=== PATIENT | female | born 1995 | race Caucasian/White ===

== ENCOUNTER 2021-06-13 08:25 | Outpatient (CLI) | payer OTHER, SELFPAY ==
--- NOTE | ~2021-06-13 | XR_ITS ---
EXAMINATION: XR wrist RT min 3V DATE: 06/13/2021 09:10 INDICATION: Right wrist pain TECHNIQUE: Posteroanterior, ulnar deviation, oblique, and lateral views of the right wrist were obtai jesus. COMPARISON: none FINDINGS: Alignment is normal. No fracture. Joint spaces are normal. No erosions. Soft tissues are unremarkable . IMPRESSION: 1. Negative right wrist radiographs. Reviewed, dictated and finalized at location B. LOFT WORKER
== END 2021-06-13 08:26 ==
PROVIDERS: PCP Nurse Practitioner Family; Visit Provider Nurse Practitioner Family
DX: M25.531 Pain in right wrist (principal)
CPT/HCPCS: 73110

== ENCOUNTER 2023-10-05 14:17 | Observation (INO) | payer SELFPAY ==
--- NOTE | ~2023-10-05 | CT_ITS ---
EXAMINATION: CT abdomen pelvis w con DATE: 10/05/2023 17:24 INDICATION: abdominal pain TECHNIQUE: Computed tomography (CT) of the abdomen and pelvis was performed with 100 mL Omnipaque-350 intravenous contrast. Automated exposure control and iterative reconstruction technique were employe d. The dose-length product was 244.08 mGy-cm. COMPARISON: None. FINDINGS: Lower thorax: Unremarkable Liver: Normal. Biliary/Gallbladder: Gallbladder is normal. No bile duct dilation. Pancreas: No mass or duct dilation. Spleen: Normal. Adrenals:No mass. Kidneys: Mild right caliectasis and moderate right pelviectasis. No obstructing calcification or mass . Normal left kidney. GI tract: Mild distal esophageal and gastric wall edema. No small or large bowel dilation. Dilated, a ppendix measuring up to 9 mm. Mesentery/Peritoneum: No ascites, mass, or free air. Retroperitoneum: No mass. Pelvis: Normal uterus and left ovary. 4.4 cm simple appearing right ovarian cyst. Midline, posterior location of the right ovary, without definite twisting of the vascular pedicle. Soft Tissues: Soft tissues and body wall unremarkable. Bones: No acute osseous finding. IMPRESSION: Mild esophagitis/gastritis. Mild right caliectasis and moderate pelviectasis, possibly representing chronic UPJ obstruction. Dilated 9 mm appendix, likely representing acute uncomplicated appendicitis. 4.4 cm simple appearing left ovarian cyst. No definite left ovarian vascular pedicle twist to suggest torsion, however, if there are symptoms in the deep pelvis or symptoms that might suggest ovarian to rsion, consider pelvic ultrasound for further evaluation. Reviewed, dictated and finalized at location K. IMPRESSION: Mild esophagitis/gastritis. Mild right caliectasis and moderate pelviectasis, possibly representing chronic UPJ obstruction. Dilated 9 mm appendix, likely representing acute uncomplicated appendicitis. 4.4 cm simple appearing left ovarian cyst. No definite left ovarian vascular pe dicle twist to suggest torsion, however, if there are symptoms in the deep pelv is or symptoms that might suggest ovarian torsion, consider pelvic ultrasound f or further evaluation.
[2023-10-05 14:44] VITALS: BP 130/79; PULSE 100; RESP 16; TEMP 37; O2SAT 100
[2023-10-05 15:07] LABS: Appearance Urine Cloudy (Clear); Bacteria Urine Rare /hpf; Bilirubin Urine Negative (Negative); Blood Urine 2+ (Negative); Color Urine Yellow (Yellow); Glucose Urine UA Negative (Negative); Ketones Urine Negative (Negative); Leukocyte Esterase Ur 3+ LEU/UL (Negative); Need Manual Microscopic Reviewed; Nitrate Urine Negative (Negative); Non Pathogenic Casts 0-2; Protein Urine Negative (Negative); RBC Urine 0-2 /hpf (0-2); Specific Grav Ur 1.008 (1.001-1.035); Squamous Epithelial Cell Urine Few /hpf (Few); Urobilinogen Urine 0.2 mg/dL (<2.0); WBC Urine 51-100 /hpf (0-3); pH Urine 5.5 (5.0-9.0)
[2023-10-05 15:09] LABS: Add Urine Microscopic? YES
--- NOTE | 2023-10-05 15:30 | ED.GENADULT ---
HPI - General Adult General Chief complaint: Abdominal Pain <Kim Smith STONE CARRIAGE OPERATOR - Last Filed: 10/05/23 15:31> Stated complaint: R SIDED ABD PAIN <Kim Valdez October, STONE CARRIAGE OPERATOR - Last Filed: 10/05/23 15:31> Time Seen by Provider: 10/05/23 15:30 <Kim Valdez October, STONE CARRIAGE OPERATOR - Last Filed: 10/05/23 15:31> Focused HPI: Brea Frye is a 28 y/o female who presents with reports of right lower abdominal pain that started at about 1800 last night, reports pain is at a 4/ 10. Reports nausea last night but has not vomited. Last ate at 0900 and last drank water at 1300. denies changes with urine, last BM was last night. GENERAL: Well-appearing, well-nourished, and in no acute distress. HEAD: Normocephalic, atraumatic. CHEST: Clear to auscultation. ?No respiratory distress. HEART: Regular rate and rhythm.? NEURO: ?Alert and oriented x3. Patient screened in triage and initial orders placed.? ?Additional care and disposition to be based upon?diagnostic testing and treatment. 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 Patient states the pain is intermittently between her umbilicus and her right lower quadrant. She states last night she had some nausea and loss of appetite but states that has since resolved. She denies fevers, vomiting, prior abdominal surgeries, dysuria or hematuria. Last bowel movement was last night and normal. She is currently on her menstrual cycle. States she has been eating well today. <Evie Pruitt PA-C - Last Filed: 10/05/23 20:36> Related Data Home medications: Home Medications Medication Instructions Recorded Confirmed No Home Medications 10/05/23 10/05/23 <Kim Valdez October, STONE CARRIAGE OPERATOR - Last Filed: 10/05/23 15:31> Allergies/adverse reactions: Allergies Allergy/AdvReac Type Severity Reaction Status Date / Time Pistachio Allergy Unknown Unknown Uncoded 11/11/17 10:46 <Kim Smith, STONE CARRIAGE OPERATOR - Last Filed: 10/05/23 15:31> Review of Systems Review of Systems: CONSTITUTIONAL: Denies fever, chills, or sweats. EYES: Denies visual changes, redness, or discharge. ENT: Denies rhinorrhea, congestion, sore throat, or otalgia. CARDIOVASCULAR: Denies chest pain, palpitations, or edema. RESPIRATORY: Denies cough or dyspnea. GASTROINTESTINAL: See HPI GENITOURINARY: Denies dysuria or hematuria. SKIN: Denies rash or itching. MUSCULOSKELETAL: Denies back pain, joint pain, or myalgia. NEUROLOGIC: Denies headache, numbness, or weakness. PSYCHIATRIC: Denies anxiety or depression. <Evie Pruitt PA-C - Last Filed: 10/05/23 20:36> [facility] Social History Social History: Social History Smoking status: Never smoker Alcohol intake: never Substance use: never Do You Feel Safe in your Home?: Yes Lack of Transportation: YES Lack of Food: Never True Current Housing: I Have Housing Concerned About Future Housing: No Difficulty Paying Gas/Electric Bills: No Difficulty Paying for Meds: No Currently Unemployed: No Education: High School Diploma/GED Difficulty w/ Childcare or Family Care: No Spiritual care concerns: No <Kim Smith, STONE CARRIAGE OPERATOR - Last Filed: 10/05/23 15:31> Exam Narrative: GENERAL: Well-appearing, well-nourished, and in no acute distress. HEAD: Normocephalic, atraumatic. EYES: PERRLA and EOMI. ENT: Nares clear, no rhinorrhea or epistaxis. Mucous membranes moist. NECK: Supple. CHEST: Clear to auscultation. No respiratory distress. HEART: Regular rate and rhythm. No murmur heard. Normal peripheral pulses. ABDOMEN: Normoactive bowel sounds. Abdomen soft with tenderness in the right lower quadrant. No rebound, guarding or rigidity. Positive Rovsing s
[2023-10-05] MEDS: KETOROLAC 30 MG/ML VIAL (*BKC) IV PUSH (16:41)
[2023-10-05 16:45] VITALS: BP 128/85; PULSE 89; RESP 18; O2SAT 100
[2023-10-05 16:54] LABS: Basophils Percent Auto 0.3 % (0.2-1.2); Eosinophils Percent Auto 0.4 % (0-4.4); Hematocrit 43.1 % (37.0-47.0); Hemoglobin 14.7 g/dL (12.0-15.0); Immature Granulocyte Absolute 0.02 K/mm3 (0.00-0.031); Immature Granulocyte Percent A 0.3 % (0-0.5); Lymphocytes Absolute Auto 2.06 K/mm3 (0.9-3.2); Lymphocytes Percent Auto 26.1 % (18.3-44.2); Mean Corpuscular HGB Conc 34.1 g/dl (32-36); Mean Corpuscular Hemoglobin 30.2 pg (26-34); Mean Corpuscular Volume 88.5 fl (80-100); Mean Platelet Volume 11.1 fl (7.4-10.4); Monocytes Absolute Auto 0.5 K/mm3 (0.1-0.6); Monocytes Percent Auto 5.7 % (2.6-8.5); Neutrophils Absolute Auto 5.3 K/mm3 (1.3-6.7); Neutrophils Percent Auto 67.2 % (45.5-73.1); Platelet Count Result 181 k/mm3 (150-375); Red Blood Count 4.87 M/mm3 (4.2-5.4); Red Cell Distribution Width 12.6 % (11.5-14.5); White Blood Count 7.9 K/mm3 (4.5-10.0)
[2023-10-05 17:03] LABS: Alanine Aminotransferase 14 U/L (6-35); Albumin Level 5.2 g/dL (3.5-5.1); Alkaline Phosphatase 72 U/L (38-126); Anion Gap 9 mmol/L (4-12); Aspartate Amino Transferase 21 U/L (14-36); Bilirubin,Total 0.8 mg/dL (0.2-1.3); Blood Urea Nitrogen 8 mg/dL (7-17); Calcium 9.8 mg/dL (8.4-10.2); Carbon Dioxide 29 mmol/L (22-30); Chloride 100 mmol/L (98-107); Estimated CRCL calculation 94 ml/min; Estimated Glomerular Filt Rate > 60; Glucose 96 mg/dL (65-110); Sodium 138 mmol/L (137-145)
[2023-10-05 20:14] LABS: Lactic Acid Reflex 0.8 mmol/L (0.7-2.0)
[2023-10-05 20:18] LABS: INR 1.1; Partial Thromboplastin Time 33.8 Seconds (22.3-36.8); Prothrombin Time 14.4 Seconds (11.1-14.7)
[2023-10-05] MEDS: PIPERACILLN/TAZ 3.375GM/NS50ML 3.375 GM/50 ML BAG IVPB ×2 (20:19→23:07)
[2023-10-05 20:31] VITALS: BP 116/77; PULSE 68; RESP 18; O2SAT 98
[2023-10-05] MEDS: SODIUM CHLORIDE 0.9% IV 1,000 ML 100 ML IV CONT (20:58)
[2023-10-05 21:13] VITALS: BP 114/83; PULSE 67; RESP 17; O2SAT 100
--- NOTE | 2023-10-05 21:34 | ADMGEN ---
This patient, Brea Frye, was admitted to [facility] Room [facility]02. Patient/family oriented to hospital policies and general routines including ID bracelet, bed and alarms, visiting hours, pain management, procedures, bathroom and other care routines, personal items, smoking policy, room service/diet, and visiting hours. Information on how to activate the Rapid Response Team has been discussed. Patient/Family are encouraged to report perceived risks to care and to ask questions if they do not understand what they are told or what they should do.
[2023-10-05 22:00] VITALS: BP 125/76; PULSE 89; RESP 16; TEMP 36.9; O2SAT 99
[2023-10-06] VITALS (13 sets, daily range): BP systolic 104–122; BP diastolic 53–84; PULSE 74–100; RESP 12–18; TEMP 35.6–37; O2SAT 95–100
[2023-10-06] MEDS: PIPERACILLN/TAZ 3.375GM/NS50ML 3.375 GM/50 ML BAG IVPB ×2 (05:40→11:01)
--- NOTE | 2023-10-06 07:24 | WPDHPUPDATE1 ---
History and Physical Update Update Date/Time: 10/06/23 07:24 History and Physical has been reviewed, including an updated exam of the patient. There are NO changes in the patient's condition. Risks, benefits, and alternatives have been discussed and questions answered. Patient agrees to proceed with procedure.
--- NOTE | 2023-10-06 07:24 | PM.IMHP ---
H&P: HPI History of Present Illness Date/Time: 10/06/23 07:24 Chief Complaint: Right lower quadrant pain Narrative: This is a 28-year-old woman who presented to the emergency department last night with right lower quadrant pain that started yesterday. Her pain was located mostly in the right lower quadrant but also around the umbilicus. She denies any fevers or chills. She did have some nausea but no vomiting. She has never had symptoms like this in the past. Review of Systems Review of Systems: All systems reviewed & are unremarkable except as noted in HPI and below Eyes: Eyes: Denies change in vision ENT: Denies hearing loss, Denies neck pain and Denies sore throat Cardiovascular: Cardiovascular: Denies chest pain and Denies dyspnea Respiratory: Respiratory: Denies cough, Denies dyspnea and Denies wheezing Genitourinary: Genitourinary: Denies hematuria and Denies dysuria Musculoskeletal: Musculoskeletal: Denies arthralgias, Denies joint swelling and Denies neck pain Allergic/Immunologic: Allergic/Immunologic: Denies wheezing [facility] Past Medical History Medical History (Updated 10/06/23 @ 07:29 by Lokesh Gagnon DO) Hemophilia B carrier Surgical History Surgical History (Updated 10/06/23 @ 07:29 by Lokesh Gagnon DO) History of surgery on wrist Family History Family History Mother No problems noted. Father No problems noted. Social History Social History Smoking status: Never smoker Alcohol intake: never Substance use: never Do You Feel Safe in your Home?: Yes Lack of Transportation: YES Lack of Food: Never True Current Housing: I Have Housing Concerned About Future Housing: No Difficulty Paying Gas/Electric Bills: No Difficulty Paying for Meds: No Currently Unemployed: No Education: High School Diploma/GED Difficulty w/ Childcare or Family Care: No Spiritual care concerns: No Meds Home Medications and Allergies Home Medications Medication Instructions Recorded Confirmed Type No Home Medications 10/05/23 10/05/23 History Allergies Allergy/AdvReac Type Severity Reaction Status Date / Time Pistachio Allergy Unknown Unknown Uncoded 04/17/17 10:46 Vital Signs Vital Signs - 24 hr 10/05/23 14:44 10/05/23 16:45 10/05/23 21:13 Temperature 37.0 C Pulse Rate 100 89 67 Respiratory Rate 16 18 17 Blood Pressure 130/79 128/85 114/83 Pulse Oximetry 100 100 100 Oxygen Delivery 10/05/23 20:31 10/05/23 22:00 10/05/23 22:40 Temperature 36.9 C Pulse Rate 68 89 Respiratory Rate 18 16 Blood Pressure 116/77 125/76 Pulse Oximetry 98 99 Oxygen Delivery Room Air 10/06/23 06:00 Temperature 36.4 C Pulse Rate 74 Respiratory Rate 16 Blood Pressure 109/61 Pulse Oximetry 100 Oxygen Delivery Exam Const: General: alert; No acute distress Orientation/consciousness: patient oriented x3 Limitations: no limitations HENMT: Head: normocephalic and atraumatic Ears: hearing grossly normal bilaterally Face/Nose/Sinus: Normal external nose present and Normal nares present Mouth: Yes Normal oral and palatal mucosa present and Yes moist mucous membranes Eyes: General: appearance normal, both eyes and all related structures Conjunctivae: conjunctivae normal Sclera: sclerae normal Pupils: Equal, round and reactive pupils present EOM: EOMs intact bilaterally Neck: Neck: normal visual inspection, full ROM, no lymphadenopathy, supple and no JVD Lymphatic: no lymphadenopathy noted Chest: Chest palpation & inspection: normal inspection of the chest Resp: Effort & Inspection: normal respiratory effort and able to speak in complete sentences Auscultation: clear to auscultation bilaterally Percussion: percussion normal Cardio: Jugular venous distension: no JVD Rate: regular rate Rhythm: regular rhythm Heart
--- NOTE | 2023-10-06 07:44 | WPDANESEPPF ---
Anes - Initial Pre Proc Eval Procedure: Operation Date: 10/06/23 07:30 Proposed Procedures p Laparoscopic Appendectomy, Possible Open - Lokesh Gagnon DO Date/Time: 10/06/23 07:44 Surgeon: Lokesh Gagnon DO Pre Op Diagnosis: Acute Appendicitis Patient Data Age: 28 Gender: F Height: 1.65 m Weight: 61 kg Last Vital Signs Temp 36.4 C 10/06/23 06:00 Pulse 74 10/06/23 06:00 Resp 16 10/06/23 06:00 BP 109/61 10/06/23 06:00 Pulse Ox 100 10/06/23 06:00 O2 Del Method Room Air 10/05/23 22:40 Allergies Allergy/AdvReac Type Severity Reaction Status Date / Time Pistachio Allergy Unknown Unknown Uncoded 04/17/17 10:46 Home Medications Medication Instructions Recorded Confirmed Type No Home Medications 10/05/23 10/05/23 History Laboratory Tests 10/05/23 10/05/23 10/05/23 14:41 16:41 19:55 WBC 7.9 K/mm3 (4.5-10.0) RBC 4.87 M/mm3 (4.2-5.4) Hgb 14.7 g/dL (12.0-15.0) Hct 43.1 % (37.0-47.0) MCV 88.5 fl (80-100) MCH 30.2 pg (26-34) MCHC 34.1 g/dl (32-36) RDW 12.6 % (11.5-14.5) Plt Count 181 k/mm3 (150-375) MPV 11.1 H fl (7.4-10.4) Immature Gran % (Auto) 0.3 % (0-0.5) Neut % (Auto) 67.2 % (45.5-73.1) Lymph % (Auto) 26.1 % (18.3-44.2) [place] % (Auto) 5.7 % (2.6-8.5) Eos % (Auto) 0.4 % (0-4.4) Baso % (Auto) 0.3 % (0.2-1.2) Lymph # (Auto) 2.06 K/mm3 (0.9-3.2) [place] # (Auto) 0.5 K/mm3 (0.1-0.6) Eos # (Auto) 0.0 K/mm3 (0-0.3) Baso # (Auto) 0.0 K/mm3 (0.0-0.1) Abs Immat Gran (auto) 0.02 K/mm3 (0.00-0.031) Absolute Neuts (auto) 5.3 K/mm3 (1.3-6.7) Absolute Nucleated RBC 0.000 K/mm3 (0.0-0.012) Nucleated RBC % 0.0 % (0.0-0.2) PT 14.4 Seconds (11.1-14.7) INR 1.1 APTT 33.8 Seconds (22.3-36.8) Sodium 138 mmol/L (137-145) Potassium 4.0 mmol/L (3.4-5.0) Chloride 100 mmol/L (98-107) Carbon Dioxide 29 mmol/L (22-30) Anion Gap 9 mmol/L (4-12) BUN 8 mg/dL (7-17) Creatinine 0.70 mg/dL (0.7-1.0) Estim Creat Clear Calc 94 ml/min Estimated GFR > 60 (59 - ) Glucose 96 mg/dL (65-110) Lactic Acid 0.8 mmol/L (0.7-2.0) Calcium 9.8 mg/dL (8.4-10.2) Total Bilirubin 0.8 mg/dL (0.2-1.3) AST 21 U/L (14-36) ALT 14 U/L (6-35) Alkaline Phosphatase 72 U/L (38-126) Total Protein 9.0 H g/dL (6.3-8.2) Albumin 5.2 H g/dL (3.5-5.1) Urine Color Yellow (Yellow) Urine Appearance Cloudy H (Clear) Urine pH 5.5 (5.0-9.0) Ur Specific [place] 1.008 (1.001-1.035) Urine Protein Negative mg/dL (Negative) Urine Glucose (UA) Negative mg/dL (Negative) Urine Ketones Negative mg/dL (Negative) Ur Blood (Man) 2+ H (Negative) Urine Nitrate Negative (Negative) Urine Bilirubin Negative (Negative) Urine Urobilinogen 0.2 mg/dL (<2.0) Add Ur Microanalysis Reviewed Leukocyte Esterase Rfl 3+ H SHERRON/UL (Negative) Urine RBC 0-2 /hpf (0-2) Urine WBC 51-100 H /hpf (0-3) Ur Squamous Epith Cells Few /hpf (Few) Urine Bacteria Rare /hpf Urine Casts 0-2 Patient hx anesthesia problems: none Family hx anesthesia problems: none Results Review: All pre-operative results and documents have been reviewed as part of the pre-operative evaluation. [facility] Past Medical History Medical History Hemophilia B carrier Surgical History Surgical History (Revi
[2023-10-06] MEDS: TRANEXAMIC ACID 1,000 MG/10 ML AMPUL 1000 MG IV PUSH (08:03)
[2023-10-06] MEDS: BUPIVACAINE/EPINEPHRINE 0.5% 10 ML VIAL 30 ML INFILTRATE (08:07)
--- NOTE | 2023-10-06 08:32 | W.PM.PROC2 ---
Procedure Note - Detailed Date of Procedure 10/06/23 Pre-op Diagnosis Acute Appendicitis Post-op Diagnosis Same Procedure Performed Laparoscopic appendectomy Surgeon Lokesh Gagnon, DO Anesthesia General and Local (0.5% bupivacaine with epinephrine) Indications This is a 28-year-old woman who presented to the emergency department last night with right lower quadrant abdominal pain. Her white blood count was normal, but CT showed evidence of acute appendicitis with a dilated appendix up to 9 mm and surrounding stranding. She was started on broad-spectrum IV antibiotics and admitted for further treatment. Discussions were made with the patient about treatment options and decision was made to proceed with laparoscopic appendectomy, possible open. Findings Laparoscopic appendectomy was performed. Patient's appendix appeared to be slightly dilated and hyperemic showing signs of early acute appendicitis. There was no evidence of perforation or abscess. The base of the appendix appeared healthy and viable. The appendix was removed and sent to the lab for pathology. Patient was also found to have a right ovarian cyst and scant blood-tinged fluid in her pelvis. Description of Procedure Procedure as well as risks, benefits, and alternatives were explained to the patient. The patient agreed to proceed. Written consent was obtained and placed in chart prior to procedure. The patient was brought back to surgical suite. She was placed supine on operating table. Time-out was done to confirm the patient and procedure. The patient was then intubated by the Anesthesia Department. Her abdomen was prepped and draped in sterile fashion using chlorhexidine prep. A 12 mm incision was made at the inferior portion of the umbilicus. Blunt dissection was carried out down to the linea alba. The linea alba was then incised using a 15 blade scalpel. Then bluntly entered into the peritoneal cavity. A 12 mm trocar was then inserted, and carbon dioxide insufflation was used to create a pneumoperitoneum. The camera was inserted and the abdomen was inspected. No immediate abnormalities were identified. The patient was then placed in slight Trendelenburg position and rotated to the left. A 5 mm incision was made in the suprapubic region in midline and a 5 mm trocar was inserted under direct visualization. A 5 mm incision was made in the left lower quadrant and a 5 mm trocar was inserted under direct visualization. The right lower quadrant was carefully inspected. The cecum was identified and then this was traced back to the appendix. The appendix was identified and grasped at the mesoappendix and lifted anteriorly. Careful blunt dissection was carried out at the base of the appendix through the mesoappendix using a [place] grasper. An Endo-BOB 45 mm blue load stapler was then advanced across the base of the appendix and clamped and fired. A white reload was then clamped across the mesoappendix and fired. This freed up our appendix completely. It was then placed in an EndoCatch bag and removed through the umbilical port. The staple lines were then inspected. Hemostasis appeared adequate and the staple lines appeared secure. The area was then irrigated with sterile saline. The pelvis was then carefully inspected and irrigated with sterile saline as well and the remainder of the abdomen was carefully inspected. The patient was then flattened out in bed. One final inspection was made around the abdominal cavity and no other abnormalities were seen. The ports were then removed under direct visualization. The camera was removed and the pneumoperitoneum was released. The fascia of the umbilical incision was reapproximated using an 0 Vicryl [id number] suture. 0.5% bupivacaine with epinephrine was infiltrated locally around each of the incisions. The skin of the incisions was then approximated using 4-0 Monocryl subcuticular suture and Exofin glue was applied on top.
[2023-10-06] MEDS: LACTATED RINGERS 1,000 ML 30 ML IV CONT ×2 (08:33)
--- NOTE | 2023-10-06 08:36 | PM.DS ---
DS: Admitting Diagnosis Discharge Date 10/06/2023 Admitting Diagnosis Acute appendicitis, hemophilia B carrier DS: Discharge Diagnosis Discharge Diagnosis (1) Acute appendicitis: Qualifiers: Acute appendicitis type: with localized peritonitis Appendicitis abscess presence: without abscess Appendicitis gangrene presence: without gangrene Appendicitis perforation presence: without perforation Qualified Code(s): K35.30 - Acute appendicitis with localized peritonitis, without perforation or gangrene Code(s): K35.80 - Unspecified acute appendicitis Status: Acute (2) Ovarian cyst: Qualifiers: Laterality: left Qualified Code(s): N83.202 - Unspecified ovarian cyst, left side Code(s): N83.209 - Unspecified ovarian cyst, unspecified side Status: Acute (3) Hemophilia B carrier: Code(s): Z14.8 - Genetic carrier of other disease Status: Acute DS: Summary Hospital Course Reason for hospitalization: Acute appendicitis Hospital Course: This is a 28-year-old woman who presented to the emergency department with right lower quadrant pain that started on 10/05/2023. She was hemodynamically stable and afebrile. White blood count was normal but CT showed evidence of early acute appendicitis. She was placed in observation for further treatment. She was started on IV Zosyn. Discussions were made with the patient and decision was made to proceed with laparoscopic appendectomy the morning on 10/06/2023. Due to her history of hemophilia B carrier status and personal history of prior bleeding episodes with tooth surgery and delivery, she was given TXA at the start of surgery. Surgery was uncomplicated. She was returned to the surgical floor postoperatively. Her diet and activity were advanced as tolerated. She was discharged home once her pain was adequately controlled, she was remaining hemodynamically stable, she was tolerating her diet, and she was ambulating in the halls. Status at Discharge Functional status at discharge: independent ambulation Overall status at discharge: patient is progressing back to baseline Time Spent with Patient Time attestation: Total time spent providing and/or coordinating discharge services: Time spent: Less than 30 minutes Exam Const: General: comfortable and no acute distress GI: Inspection: non-distended and incision (Intact with glue) DS: Data Data Completed and Pending Pending studies at discharge: Pending at discharge 10/06/23 08:12 Surgical [PTH] Routine Labs on day of discharge: Labs from last 24 hours 10/05/23 10/05/23 10/05/23 19:55 16:41 14:41 WBC 7.9 RBC 4.87 Hgb 14.7 Hct 43.1 MCV 88.5 MCH 30.2 MCHC 34.1 RDW 12.6 Plt Count 181 MPV 11.1 H Immature Gran % (Auto) 0.3 Neut % (Auto) 67.2 Lymph % (Auto) 26.1 [place] % (Auto) 5.7 Eos % (Auto) 0.4 Baso % (Auto) 0.3 Lymph # (Auto) 2.06 [place] # (Auto) 0.5 Eos # (Auto) 0.0 Baso # (Auto) 0.0 Abs Immat Gran (auto) 0.02 Absolute Neuts (auto) 5.3 Absolute Nucleated RBC 0.000 Nucleated RBC % 0.0 PT 14.4 INR 1.1 APTT 33.8 Sodium 138 Potassium 4.0 Chloride 100 Carbon Dioxide 29 Anion Gap 9 BUN 8 Creatinine 0.70 Estim Creat Clear Calc 94 Estimated GFR > 60 Glucose 96 Lactic Acid 0.8 Calcium 9.8 Total Bilirubin 0.8 AST 21 ALT 14 Alkaline Phosphatase 72 Total Protein 9.0 H Albumin 5.2 H Urine Color Yellow Urine Appearance Cloudy H Urine pH 5.5 Ur Specific [place] 1.008 Urine Protein Negative Urine Glucose (UA) Negative Urine Ketones Negative Ur Blood (Man) 2+ H Urine Nitrate Negative Urine Bilirubin Negative Urine Urobilinogen 0.2 Add Ur Microanalysis Reviewed Leukocyte Esterase Rfl 3+ H Urine RBC 0-2 Urine WBC 51-100 H Ur Squamous Epith Cells Few Urine Bacteria Rare Uri
[2023-10-06] MEDS: fentaNYL CITRATE INJ (*CRX) 100 MCG/2 ML VIAL 25 MCG IV PUSH ×8 (09:02→09:28)
--- NOTE | 2023-10-06 09:42 | PC.NURSE ---
Returned from OR per [ ]. Report received from [Kiesha ].
[2023-10-06] MEDS: HYDROcodone/acetaminophen (*CRX) 5-325 MG TABLET 1 TAB PO (10:07)
[2023-10-06] MEDS: LACTATED RINGERS 1,000 ML 100 ML IV CONT (10:10)
[2023-10-06] MEDS: ONDANSETRON INJ 4 MG/2 ML VIAL IV PUSH (10:39)
== END 2023-10-06 14:45 | disposition home or self-care (01) ==
LOC: ANHED 20:01 → ANH3MEDSUR 21:21
PROVIDERS: Nurse Practitioner Family; Student in an Organized Health Care Education/Training Program; Admitting Provider Surgery; Emergency Provider Physician Assistant; PCP Nurse Practitioner Family; Visit Provider Surgery
PROC: 0DTJ4ZZ Resection of Appendix, Percutaneous Endoscopic Approach (ICD-10-PCS; CPT 44970; principal; 2023-10-06 07:30)
DX: K35.30 Acute appendicitis with localized peritonitis, without perforation or gangrene (principal); N83.202 Unspecified ovarian cyst, left side; Z14.8 Genetic carrier of other disease
CPT/HCPCS: 44970; 36415; 74177; 80053; 81001; 81025; 83605; 85025; 85610; 85730; 87040; 87086; 88304; 96365; 96375; 99285; A9270; G0378; J0330; J1100; J1885; J2250; J2405; J2543; J2704; J3010; J7030; J7120; Q9967